=== PATIENT | female | born 1945 | race Two or more races ===

== ENCOUNTER 2019-02-23 09:07 | Emergency (ER) | payer MEDICAID ==
[~2019-02-23] VITALS: Ht 152.4 cm; Wt 65.8 kg
[2019-02-23 09:11] VITALS: Ht 152.4 cm; Wt 65.8 kg
[2019-02-23 10:34] VITALS: BP 138/75
== END 2019-02-23 10:34 | disposition home or self-care (01) ==
LOC: ED 09:07
DX: J06.9 Acute upper respiratory infection, unspecified (principal); I10 Essential (primary) hypertension